=== PATIENT | male | born 2000 | race Caucasian/White ===

== ENCOUNTER 2019-06-09 15:55 | Emergency (ER) | payer BC, OTHER ==
[2019-06-09] MEDS ORDERED: LIDOCAINE 1% MPF 5 ML VIAL ONE (16:14)
[2019-06-09] MEDS ORDERED: BUPIVACAINE 0.5% PF 10 ML VIAL ONE (16:14)
[2019-06-09] MEDS ORDERED: TETANUS & DIPHTHERIA TOX,ADULT 0.5 ML VIAL ONE (16:17)
[2019-06-09] MEDS ORDERED: LIDOCAINE 1% MPF 30 ML VIAL ONE (16:18)
[2019-06-09] MEDS ORDERED: CEFAZOLIN/SWI 1gm 1 GM/10 ML SYR ONE (17:01)
--- NOTE | 2019-06-09 17:53 | EDPHYS ---
Physician Documentation [facility] Name: Anjel Mcfarland Age: 19 yrs Sex: Male : 2000 Arrival Date: 06/09/2019 Time: 15:57 Bed 18 Private MD: ED Physician Bean Edgar HPI: 06/09 16:22 This 19 yrs old Male presents to ER via Ambulatory with complaints of cp Laceration to toe. 16:25 The patient presents with a crush injury, hydraulic trencher. cp 16:25 The complaints affect the left fifth toe. cp Historical: - Allergies: 16:02 No Known Allergies; jl7 - Home Meds: 16:02 None [Active]; jl7 - PMHx: 16:02 ADD/ADHD; jl7 - PSHx: 16:02 right hand; jl7 - Immunization history:: Adult Immunizations unknown. - Social history:: Smoking status: Patient/guardian denies using tobacco. - Ebola Screening: : No symptoms or risks identified at this time. ROS: 16:25 Constitutional: Negative for body aches, chills, fever. cp 16:25 Cardiovascular: Negative for chest pain. cp 16:25 Respiratory: Negative for cough, shortness of breath, wheezing. 16:25 Abdomen/GI: Negative for abdominal pain, nausea, vomiting, and diarrhea. 16:25 MS/extremity: Positive for injury or acute deformity, pain, swelling, tenderness, of the left fifth toe. 16:25 Skin: Positive for laceration(s), of the left fifth toe. 16:25 All other systems are negative. Exam: 16:35 Constitutional: The patient appears in no acute distress, alert, awake, non-toxic, well cp developed, well nourished, uncomfortable. 16:35 Head/Face: Normocephalic, atraumatic. cp 16:35 Musculoskeletal/extremity: Extremities: grossly normal except: noted in the left fifth toe: pain, swelling, tenderness, Perfusion: the extremity is with brisk capillary refill, Sensation intact. 16:35 Skin: injury, laceration(s), of the left fifth toe, that can be described as no foreign body, linear, with moderate bleeding. Vital Signs: 16:02 Weight 99.79 kg; Height 6 ft. 1 in. (185.42 cm); Pain 3/10; jl7 16:05 BP 143 / 78; Pulse 100; Resp 18; Temp 98.3(O); Pulse Ox 99% on R/A; Pain 3/10; em 17:02 BP 104 / 87; Pulse 106; Resp 17 S; Pulse Ox 99% on R/A; ca1 16:02 Body Mass Index 29.03 (99.79 kg, 185.42 cm) jl7 Laceration: 18:00 Wound Repair of 4.5cm ( 1.8in ) subcutaneous laceration to left fifth toe. Linear cp shaped.. Distal neuro/vascular/tendon intact. Anesthesia: Digital block administered with 8 mls of Lido/Marcaine. Wound prep: Moderate cleansing with hibiclenz by nurse by me, Wound irrigation by nurse by me, Wound explored moderately. Skin closed with 13 4-0 Prolene using interrupted sutures and sterile technique. Dressed with Neosporin, 4x4's, Kerlix. Patient tolerated well. MDM: 16:10 Patient medically screened. cp 16:45 Differential diagnosis: fracture, penetrating trauma, amputation, open fracture. 16:52 Physician consultation: Akshat South MD was called at 16:52, was contacted at 16:52, regarding consult, patient's condition, and will see patient in office, in 2-3 days, wants laceration cleaned, irrigated and closed in ED. Will see patient for f/u in clinic. 17:52 Data reviewed: vital signs, nurses notes, radiologic studies, plain films, I have cp discussed the patient's presentation/case with the attending Emergency Department Physician; and as a result, I will discharge patient. 17:52 Test interpretation: by ED physician or midlevel provider: plain radiologic studies, cp xrays of left foot show distal phalanx fracture of small toe. Response to treatment: the patient's symptoms have markedly improved after treatment, and as a result, I will discharge patient. 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 Exp: em 04/30/2021. Lot #: [id number]. } Route: IM; Site: right deltoid; 16:30 Follow up: Response: No adverse reaction em 16:21 Drug: Lidocaine (1 %) 5 ml {Note: administered by PA. Jaime} Volume: 20 ml; Route: em Infiltration; Site: wound; 16:22 Drug: Marcaine (0.5 %) 5 ml {Note: administered by Jaime PAAlisia} Volume: 10 ml; Route: em Infiltration; 17:04 Drug: Ancef 1 grams Route: IVPB; Site: right antecubital; iw 18:22 Follow up: Response: No adverse reaction; IV Status: Completed infusion; IV Intake: 10mlem Disposition: 18:20 Chart complete. cp 19:18 Co-signature as Attending Physician, Bean Edgar MD I agree with the assessment and kdr plan of care. Disposition: 06/09/19 17:53 Discharged to Home. Impression: Nondisplaced fracture of distal phalanx of left lesser toe(s) - fifth, open. - Condition is Stable. - Discharge Instructions: Laceration Care, Adult, Toe Fracture. - Prescriptions for Keflex 500 mg Oral Capsule - take 1 capsule by ORAL route every 6 hours for 10 days; 40 capsule. Tylenol- Codeine #3 300-30 mg Oral Tablet - take 2 tablets by ORAL route every 6 hours As needed; 20 tablet. - Medication Reconciliation Form, Thank You Letter, Antibiotic Education, Prescription Opioid Use form. - Follow up: Akshat South MD; When: 1 - 2 days; Reason: Wound Recheck. - Problem is new. - Symptoms have improved. Signatures: Dispatcher [employer] Bean Lynn MD MD [facility] Francisco Samaniego RN RN em Clarisa White RN RN iw Jaime Cox PA PA cp Shannon Garcia RN RN jl7 Corrections: (The following items were deleted from the chart) 18:22 17:50 Crutches ordered. cp em 18:23 17:53 06/09/2019 17:53 Discharged to Home. Impression: Nondisplaced fracture of distal em phalanx of left lesser toe(s) - fifth, open. Condition is Stable. Forms are Medication Reconciliation Form, Thank You Letter, Antibiotic Education, Prescription Opioid Use. Follow up: Akshat South; When: 1 - 2 days; Reason: Wound Recheck. Problem is new. Symptoms have improved. cp
--- NOTE | 2019-06-09 17:53 | ER ---
Nurse's Notes [facility] Name: Anjel Mcfarland Age: 19 yrs Sex: Male : 2000 Arrival Date: 06/09/2019 Time: 15:57 Bed 18 Private MD: Diagnosis: Nondisplaced fracture of distal phalanx of left lesser toe(s)-fifth, open Presentation: 06/09 16:00 Presenting complaint: Patient states: Foot on side of trencher, slipped and trencher jl7 got my toe. Transition of care: patient was not received from another setting of care. Onset of symptoms was June 09, 2019. Risk Assessment: Do you want to hurt yourself or someone else? Patient reports no desire to harm self or others. Initial Sepsis Screen: Does the patient meet any 2 criteria? No. Patient's initial sepsis screen is negative. Does the patient have a suspected source of infection? No. Patient's initial sepsis screen is negative. Care prior to arrival: None. 16:00 Method Of Arrival: Ambulatory 7 16:00 Acuity: KERRIE 4 jl7 16:51 Acuity: KERRIE 3 iw Triage Assessment: 16:02 General: Appears in no apparent distress. uncomfortable, Behavior is agitated, anxious. jl7 Pain: Complains of pain in left fifth toe Pain currently is 3 out of 10 on a pain scale. Historical: - Allergies: 16:02 No Known Allergies; jl7 - Home Meds: 16:02 None [Active]; jl7 - PMHx: 16:02 ADD/ADHD; jl7 - PSHx: 16:02 right hand; jl7 - Immunization history:: Adult Immunizations unknown. - Social history:: Smoking status: Patient/guardian denies using tobacco. - Ebola Screening: : No symptoms or risks identified at this time. Screenin:07 Abuse screen: Denies threats or abuse. Nutritional screening: No deficits noted. em Tuberculosis screening: No symptoms or risk factors identified. Fall Risk None identified. Assessment: 16:02 General: Appears in no apparent distress. uncomfortable, Behavior is calm, cooperative. em Pain: Complains of pain in left fifth toe Pain currently is 3 out of 10 on a pain scale. Neuro: Level of Consciousness is awake, alert, obeys commands, Oriented to person, place, time, situation, Appropriate for age. Cardiovascular: Capillary refill < 3 seconds Patient's skin is warm and dry. Respiratory: Airway is patent Respiratory effort is even, unlabored, Respiratory pattern is regular, symmetrical. Derm: Skin is intact, is healthy with good turgor, Skin is pink, warm \T\ dry. Injury Description: Laceration sustained to left fifth toe is clean, full thickness, 0.5 to 2.5 cm long, bleeding moderately, was sustained less than 30 minutes ago. a small amount of bleeding noted at this time. Vital Signs: 16:02 Weight 99.79 kg; Height 6 ft. 1 in. (185.42 cm); Pain 3/10; jl7 16:05 BP 143 / 78; Pulse 100; Resp 18; Temp 98.3(O); Pulse Ox 99% on R/A; Pain 3/10; em 17:02 BP 104 / 87; Pulse 106; Resp 17 S; Pulse Ox 99% on R/A; ca1 16:02 Body Mass Index 29.03 (99.79 kg, 185.42 cm) jl7 ED Course: 15:57 Patient arrived in ED. mr 15:59 Jaime Cox PA is PHCP. cp 15:59 Bean Edgar MD is Attending Physician. cp 16:01 Triage completed. jl 16:01 Francisco Samaniego, RN is Primary Nurse. em 16:02 Arm band placed on right wrist. Patient placed in an exam room, on a stretcher, in view em of staff members. 16:07 Patient has correct armband on for positive identification. Bed in low position. Call em light in reach. Adult w/ patient. 16:16 XRAY Foot LEFT 3 View In Process Unspecified. EDMS 16:50 Inserted saline lock: 22 gauge in right. iw 17:20 Assist provider with laceration repair on left fifth toe that was between 2.6 to 7.5 cm em using sutures. Set up tray. Performed by Jaime MERLOS Dressed with 4X4s, Patient tolerated well. 17:51 Akshat South MD is Referral Physician. cp 18:21 IV discontinued, intact, bleeding controlled, No redness/swelling at site. Pressure em dressing applied. 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 Exp: em 04/30/2021. Lot #: [id number]. } Route: IM; Site: right deltoid; 16:30 Follow up: Response: No adverse reaction em 16:21 Drug: Lidocaine (1 %) 5 ml {Note: administered by PA. Jaime} Volume: 20 ml; Route: em Infiltration; Site: wound; 16:22 Drug: Marcaine (0.5 %) 5 ml {Note: administered by PA. Jaime} Volume: 10 ml; Route: em Infiltration; 17:04 Drug: Ancef 1 grams Route: IVPB; Site: right antecubital; iw 18:22 Follow up: Response: No adverse reaction; IV Status: Completed infusion; IV Intake: 10mlem Intake: 18:22 IV: 10ml; Total: 10ml. em Outcome: 17:53 Discharge ordered by MD. cp 18:21 Discharged to home ambulatory, with family. em 18:21 Condition: good 18:21 Discharge instructions given to patient, family, Instructed on discharge instructions, follow up and referral plans. medication usage, wound care, Demonstrated understanding of instructions, follow-up care, medications, wound care, Prescriptions given X 2. 18:23 Patient left the ED. em Signatures: Dispatcher [employer] CHAVEZMN PriceAnat Francisco Samaniego, RN Clarisa Caruso RN RN iw Page, Corey, PA PA cp Leal, Jahala, RN RN jl7 Jelly Thomas RN RN ca1 Corrections: (The following items were deleted from the chart) 16:08 16:02 Arm band placed on right wrist. Patient placed in an exam room, on a stretcher, em in view of staff members, silke
[2019-06-09 18:38] VITALS: TEMP 98.3; O2SAT 99
[2019-06-09 18:39] VITALS: BP 104/87
--- NOTE | 2019-06-09 18:52 | RAD REPORT ---
EXAM DESCRIPTION: RAD - Foot Left 3 View - 06/09/2019 4:16 pm CLINICAL HISTORY: Left Foot pain FINDINGS: Small avulsion fracture of the fifth terminal tuft. No dislocation
== END 2019-06-09 18:23 | disposition home or self-care (01) ==
LOC: ER 15:55
PROC: 0JQR0ZZ Repair Left Foot Subcutaneous Tissue and Fascia, Open Approach (ICD-10-PCS; principal; 2019-06-09)
DX: S92.535B Nondisplaced fracture of distal phalanx of left lesser toe(s), initial encounter for open fracture (principal); W31.89XA Contact with other specified machinery, initial encounter; Y93.9 Activity, unspecified; Y92.9 Unspecified place or not applicable; Z23 Encounter for immunization
CPT/HCPCS: 90471; 90714; 96365; 99284; J0690